=== PATIENT | female | born 1965 | race Caucasian/White ===

== ENCOUNTER 2022-04-26 15:59 | Emergency (ER) | payer OTHER ==
[~2022-04-26] VITALS: Ht 152.4 cm; Wt 60.8 kg
[2022-04-26 16:00] VITALS: BP 132/72
[2022-04-26] MEDS ORDERED: ACET-2247 PO (16:27)
[2022-04-26] MEDS ORDERED: AMOX200S10 PO (16:27)
[2022-04-26] MEDS ORDERED: AMOX/CLAV 875/125MG TAB PO ONE (16:30)
[2022-04-26] MEDS ORDERED: HYDROCODONE/ACETAMINOPHEN 10/325 MG TAB PO ONE (16:30)
== END 2022-04-26 16:44 | disposition home or self-care (01) ==
LOC: EDH 15:59
DX: K13.79 Other lesions of oral mucosa (principal); K02.9 Dental caries, unspecified; K05.10 Chronic gingivitis, plaque induced; I10 Essential (primary) hypertension; Z90.49 Acquired absence of other specified parts of digestive tract; Z98.890 Other specified postprocedural states